=== PATIENT | male | born 1950 | race African-American/Black ===

== ENCOUNTER 2017-05-21 13:52 | Emergency (ER) | payer OTHER ==
[~2017-05-21] VITALS: Ht 172.7 cm; Wt 63.5 kg
[~2017-05-21 13:52] MED LIST: DOXY100T PO; HYDR25TA9 PO; INSU100I17 SQ; INSU100I27 SQ; LISI-338 PO
--- NOTE | 2017-05-21 14:11 | PHYS DOC ---
Past Medical History Past Medical History: Diabetes-Type II, Hypertension Additional Past Medical Histor: enlarged heart Past Surgical History: No Surgical History Alcohol Use: None Drug Use: None Adult General Chief Complaint Chief Complaint: ALTERED MENTAL STATUS HPI HPI Patient is a 67 year old male who presents with altered mental status. Patient comes from a half-way is insulin-dependent, received his insulin this morning and reportedly ate breakfast. When EMS arrived patient's blood sugar was 25. They gave the patient an amp of D50 and his mentation improved. Patient reports she's had a cough and some dysuria, no abdominal pain, nausea or vomiting, no known fevers. He denies any associated pain. When asked he does report he has a backside wound but this was not found on examination. Review of Systems Review of Systems Constitutional: Denies fever or chills [] Eyes: Denies change in visual acuity, redness, or eye pain [] HENT: Denies nasal congestion or sore throat [] Respiratory: reports cough, denies sob Cardiovascular: denies Chest pain GI: Denies abdominal pain, nausea, vomiting, bloody stools or diarrhea [] : reports dysuria Musculoskeletal: Denies back pain or joint pain [] Integument: Denies rash or skin lesions [] Neurologic: Denies headache, focal weakness or sensory changes [] Current Medications Current Medications Current Medications Medications (Trade) Dose Ordered Sig/[place] Start Time Stop Time Status Last Admin Dose Admin Dextrose (Dextrose 50%-Water Syringe) 12.5 gm 1X ONCE 05/21/17 14:30 05/21/17 14:31 DC 05/21/17 14:32 12.5 GM Dextrose/Sodium Chloride 1,000 ml @ 125 mls/hr 1X ONCE 05/21/17 14:30 05/21/17 22:29 05/21/17 14:34 125 MLS/HR Allergies Allergies Allergies Coded Allergies Type Severity Reaction Last Updated Verified No Known Drug Allergies 06/10/13 No Physical Exam Physical Exam Constitutional: Well developed, well nourished, no acute distress, non-toxic appearance. [] HENT: Normocephalic, atraumatic, bilateral external ears normal, oropharynx moist, no oral exudates, nose normal. [] Eyes: PERRLA, EOMI, conjunctiva normal, no discharge. [] Neck: Normal range of motion, no tenderness, supple, no stridor. [] Cardiovascular:Heart rate regular rhythm, no murmur [] Lungs & Thorax: Bilateral breath sounds clear to auscultation [] Abdomen: Bowel sounds normal, soft, no tenderness, no masses, no pulsatile masses. [] Skin: Warm, dry, no erythema, no rash. [] Back: No tenderness, no CVA tenderness. [] Extremities: No tenderness, no cyanosis, no clubbing, ROM intact, no edema, lower extr BKA, stump soft Neurologic: Alert and oriented X 3, normal motor function, normal sensory function, no focal deficits noted. [] Current Patient Data Vital Signs Vital Signs Date Time Temp Pulse Resp B/P (MAP) Pulse Ox O2 Delivery O2 Flow Rate FiO2 05/21/17 13:52 94.9 72 18 187/97 (127) 97 Room Air 94.9 Lab Values Laboratory Tests Test 05/21/17 14:25 05/21/17 14:26 05/21/17 14:30 05/21/17 15:02 Glucose (Fingerstick) 60 mg/dL (70-99) L 90 mg/dL (70-99) White Blood Count 7.0 x10^3/uL (4.0-11.0) Red Blood Count 3.59 x10^6/uL (4.30-5.70) L Hemoglobin 10.8 g/dL (13.0-17.5) L Hematocrit 32.5 % (39.0-53.0) L Mean Corpuscular Volume 90 fL (79-100) Mean Corpuscular Hemoglobin 30 pg (25-35) Mean Corpuscular Hemoglobin Concent 33 g/dL (31-37) Red Cell Distribution Width 14.4 % (11.5-14.5) Platelet Count 321 x10^3/uL (140-400) Neutrophils (%) (Auto) 78 % (31-73) H Lymphocytes (%) (Auto) 11 % (24-48) L Monocytes (%) (Auto) 9 % (0-9) Eosinophils (%) (Auto) 1 % (0-3) Basophils (%) (Auto) 1 % (0-3) Neutrophils # (Auto) 5.4 x10^3uL (1.8-7.7) Lymphocytes # (Auto) 0.7 x10^3/uL (1.0-4.8) L Monocytes # (Auto) 0.6 x10^3/uL (0.0-1.1) Eosinophils # (Auto) 0.1 x10^3/uL (0.0-0.7) Basophils # (Auto) 0.1 x10^3/uL (0.0-0.2) Sodium Level 143 mmol/L (136-145) Potassium Level 3.3 mmol/L (3.5-5.1) L Chloride Level 106 mmol/L (98-107) Carbon Dioxide Level 31 mmol/L (21-32) Anion Gap 6 (6-14) Blood Urea Nitrogen 20 mg/dL (8-26) Creatinine 0.9 mg/dL (0.7-1.3) Estimated GFR (Cockcroft-Gault) 101.5 BUN/Creatinine Ratio 22 (6-20) H Glucose Level 70 mg/dL (70-99) Lactic Acid Level 1.7 mmol/L (0.4-2.0) Calcium Level 9.0 mg/dL (8.5-10.1) Total Bilirubin 0.1 mg/dL (0.2-1.0) L Aspartate Amino Transferase (AST) 20 U/L (15-37) Alanine Aminotransferase (ALT) 17 U/L (16-63) Alkaline Phosphatase 60 U/L (46-116) Total Protein 6.2 g/dL (6.4-8.2) L Albumin 1.9 g/dL (3.4-5.0) L Albumin/Globulin Ratio 0.4 (1.0-1.7) L Urine Collection Type U cath Urine Color Yellow Urine Clarity Clear Urine pH 6.5 Urine Specific [place] 1.015 Urine Protein >=300 mg/dL (NEG-TRACE) Urine Glucose (UA) 100 mg/dL (NEG) Urine Ketones (Stick) Negative mg/dL (NEG) Urine Blood Small (NEG) Urine Nitrite Negative (NEG) Urine Bilirubin Negative (NEG) Urine Urobilinogen Dipstick 0.2 mg/dL (0.2 mg/dL) Urine Leukocyte Esterase Negative (NEG) Urine RBC 11-20 /HPF (0-2) Urine WBC 0 /HPF (0-4) Urine Squamous Epithelial Cells Occ /LPF Urine Renal Epithelial Cells Few /LPF Urine Bacteria 0 /HPF (0-FEW) Urine Mucus Slight /LPF Laboratory Tests 05/21/17 14:26 Laboratory Tests 05/21/17 14:26 EKG EKG 60 beats for minute, sinus, normal axis, QTC of 498, no ST elevation or depression, nonischemic T waves, low voltage, interpreted by me[] Radiology/Procedures Radiology/Procedures Chest x-ray: No acute infiltrate appreciated, normal cardiac silhouette, no appreciable bony abnormality, 1 view interpreted by me[] Course & Med Decision Making Course & Med Decision Making Pertinent Labs and Imaging studies reviewed. (See chart for details) Pt was hypothermic, septic workup initiated. IV fluids given, monitor BS closely. Blood sugar repeated and was 60, half amp D50 was given to the patient D5 normal saline started. Patient encouraged to eat. No other signs of infection noted on ED workup. To you to monitor the patient's blood sugar. At 1515 care was transferred to Dr. Armstrong. We will monitor the patient's blood sugar for another hour and if no drops, the patient will be discharged back to the half-way. His blood pressure did improve without intervention. No other focal deficits appreciated, patient is agreeable to the plan. Dragon Disclaimer Dragon Disclaimer This electronic medical record was generated, in whole or in part, using a voice recognition dictation system. Departure Departure Impression: Primary Impression: Hypoglycemia Referrals: TAI JIM MD (PCP) CARLIE JANE MD May 21, 2017 14:11
[2017-05-21] MEDS ORDERED: DEXTROSE 50% 25 GM / 50ML DISP.SYRIN. IV ONE ×2 (14:28→14:30)
[2017-05-21] MEDS ORDERED: IV DEXTROSE 5% - 0.9 % NACL 1,000 ML IV ONE (14:30)
[2017-05-21 14:35] LABS: BASO # 0.1 x10^3/uL (0.0-0.2); BASO % 1 % (0-3); EOS % 1 % (0-3); HEMATOCRIT 32.5 % (39.0-53.0); HEMOGLOBIN 10.8 g/dL (13.0-17.5); LYMPH # 0.7 x10^3/uL (1.0-4.8); LYMPH % 11 % (24-48); MEAN CORPUSCULAR HEMOGLOBIN 30 pg (25-35); MEAN CORPUSCULAR HGB CONC 33 g/dL (31-37); MEAN CORPUSCULAR VOLUME 90 fL (79-100); MONO % 9 % (0-9); NEUT % 78 % (31-73); PLATELET COUNT 321 x10^3/uL (140-400); RED BLOOD COUNT 3.59 x10^6/uL (4.30-5.70); RED CELL DISTRIBUTION WIDTH 14.4 % (11.5-14.5)
[2017-05-21 14:41] LABS: BILIRUBIN,URINE NEGATIVE (NEG); GLUCOSE,URINE 100 mg/dL (NEG); NITRITE,URINE NEGATIVE (NEG); PH,URINE 6.5; PROTEIN,URINE >=300 mg/dL (NEG-TRACE); UROBILINOGEN,URINE 0.2 mg/dL (0.2 mg/dL)
[2017-05-21 14:50] LABS: CREATININE 0.9 mg/dL (0.7-1.3); GFR 101.5; POTASSIUM 3.3 mmol/L (3.5-5.1)
[2017-05-21 14:55] LABS: BACTERIA,URINE 0 /HPF (0-FEW); SQUAMOUS EPITHELIAL CELL,UR OCC /LPF; WBC,URINE 0 /HPF (0-4)
[2017-05-21 14:56] LABS: ALBUMIN 1.9 g/dL (3.4-5.0); ALBUMIN/GLOBULIN RATIO 0.4 (1.0-1.7); TOTAL BILIRUBIN 0.1 mg/dL (0.2-1.0); TOTAL PROTEIN 6.2 g/dL (6.4-8.2)
--- NOTE | 2017-05-21 15:06 | RAD ---
EXAM: Chest one view. HISTORY: Cough, weakness, hypertension, diabetes. COMPARISON: 05/09/2017. FINDINGS: A frontal view of the chest is obtained. A nodular density in the left base laterally likely corresponds with a partially visualized rib fracture deformity on prior CT. It is unchanged since the recent study. There are no confluent infiltrates. There are atherosclerotic calcifications of the aorta. There is no pneumothorax or pleural effusion. The heart is not enlarged. IMPRESSION: 1. A small nodule in the left base likely corresponds with a rib fracture deformity. Ongoing follow-up is recommended to confirm stability.
--- NOTE | 2017-05-21 16:04 | EKG ---
[facility] [address] [place] [id number] Test Date: 2017-05-21 Test Time: 14:21:52 Pat Name: DANIEL MONROE Department: Room: Gender: M [employer] Operator: : [id number] Requested By: CARLIE JANE Order Number: [id number] Reading MD: Measurements Intervals [place] Rate: 60 P: 90 MT: 156 QRS: 72 QRSD: 80 T: 45 QT: 498 QTc: 498 Interpretive Statements SINUS RHYTHM LOW LIMB LEAD VOLTAGE QRS(T) CONTOUR ABNORMALITY CONSIDER ANTEROLATERAL MYOCARDIAL DAMAGE PROLONGED QT POSSIBLY ABNORMAL ECG RI6.01 No previous ECG available for comparison
[2017-05-21 18:54] VITALS: BP 196/96
== END 2017-05-21 19:05 | disposition home or self-care (01) ==
LOC: ER 13:52
DX: E11.649 Type 2 diabetes mellitus with hypoglycemia without coma (principal); R05 Cough; I10 Essential (primary) hypertension; Z79.4 Long term (current) use of insulin
CPT/HCPCS: 36415; 51701; 71010; 80053; 81001; 82962; 83605; 85025; 87040; 93005; 96361; 96374; 99285; J7042